=== PATIENT | male | born 1960 | race African-American/Black ===

== ENCOUNTER 2021-09-14 09:32 | Emergency (ER) | payer OTHER ==
[2021-09-14] MEDS ORDERED: Ibuprofen 200 MG TAB ONE (10:12)
[2021-09-14] MEDS ORDERED: Acetaminophen 500 MG TAB ONE (10:12)
== END 2021-09-14 10:45 | disposition home or self-care (01) ==
LOC: CSHERS 09:32
DX: S06.0X0A Concussion without loss of consciousness, initial encounter (principal); S13.4XXA Sprain of ligaments of cervical spine, initial encounter; M54.50 Low back pain, unspecified; I10 Essential (primary) hypertension; E11.9 Type 2 diabetes mellitus without complications; V43.52XA Car driver injured in collision with other type car in traffic accident, initial encounter
CPT/HCPCS: 99283

== ENCOUNTER 2021-11-10 19:06 | Emergency (ER) | payer OTHER | END 2021-11-10 22:07 | disposition home or self-care (01) | LOC: CSHERS 19:06 | DX: M79.644 Pain in right finger(s) (principal); E11.9 Type 2 diabetes mellitus without complications; I10 Essential (primary) hypertension; Z79.899 Other long term (current) drug therapy; Z21 Asymptomatic human immunodeficiency virus [HIV] infection status ==

== ENCOUNTER 2023-12-12 08:00 | Outpatient (CLI) | payer OTHER ==
[2023-12-12] MEDS ORDERED: Iopamidol 300 61% 100 ML VIAL FS ONE (15:07)
== END 2023-12-12 08:01 | disposition home or self-care (01) ==
LOC: CSHRAD 08:00
PROVIDERS: ATTEND Urology
DX: N28.1 Cyst of kidney, acquired (principal)
CPT/HCPCS: 74170; 82565

== ENCOUNTER 2025-02-03 09:19 | Outpatient (CLI) | payer OTHER ==
[2025-02-03 10:22] LABS: Estimated GFR - POC 45.0
[2025-02-03] MEDS ORDERED: Iopamidol 300 61% 100 ML VIAL FS ONE (14:18)
== END 2025-02-03 09:20 | disposition home or self-care (01) ==
LOC: CSHCT 09:19
PROVIDERS: ATTEND Urology
DX: N28.1 Cyst of kidney, acquired (principal)
CPT/HCPCS: 74170; 82565; Q9967